=== PATIENT | female | born 1930 | race Caucasian/White ===

== ENCOUNTER 2016-10-24 18:05 | Emergency (ER) | payer OTHER ==
[~2016-10-24] VITALS: Ht 147.3 cm; Wt 54.4 kg
[2016-10-24] MEDS ORDERED: PLAV75TA38 PO (18:37)
[2016-10-24] MEDS ORDERED: TETANUS/DIPHTHERIA TOX ADSORB ADULT 0.5ML SYR/VIAL (90714) IM ONE (18:45)
[2016-10-24 19:05] LABS: MEAN CORPUSCULAR HEMOGLOBIN 32.1 pg (27.0-33.0); MEAN CORPUSCULAR HGB CONC 33.6 g/dl (32.0-36.5); MEAN CORPUSCULAR VOLUME 95.7 fl (80.0-96.0); RED CELL DISTRIBUTION WIDTH 15.6 % (11.5-14.5); WHITE BLOOD COUNT 3.8 K/mm3 (4.0-10.0)
[2016-10-24 19:12] LABS: INR 1.01
--- NOTE | 2016-10-24 19:30 | REPUSA ---
CT of the cervical spine Clinical history: Pain. Technique: Multiple axial CT images were obtained through the cervical spine without administration o f contrast. Coronal and sagittal 3-D reconstructed images were also obtained. Comparison: None. Findings: The cervical vertebral bodies are in satisfactory positioning and alignment. No fractures or dislocat ions are demonstrated. The odontoid process is intact. Intervertebral disc spaces are moderately narr owed at all levels. This is most severe at C5/C6. Moderate facet arthropathy is seen bilaterally. The re is no evidence of facet subluxation. The neural foramen appear grossly patent. The cervical crania l junction is intact. The cervical spinal canal demonstrates normal caliber and contour without evide nce of spinal stenosis. The surrounding soft tissues are within normal limits. Impression: No acute fracture or traumatic injury. Moderately severe multilevel degenerative disc dis ease throughout the cervical spine, most severe at C5/C6. Moderate bilateral facet arthropathy.
--- NOTE | 2016-10-24 19:30 | REPUSA ---
CT of the head Clinical history: trauma. Protocol: Multiple axial CT images obtained with 5 mm slice thickness were obtained through the head without administration of contrast. Findings: The ventricles and sulci are symmetric but prominent in size bilaterally. There are periven tricular areas of low attenuation throughout the deep white matter. There is no evidence of acute hem orrhage or infarct. There is no midline shift, mass effect, or extra-axial fluid collection. The osse ous structures are unremarkable. The visualized paranasal sinuses and mastoid air cells are clear. Th ere is superficial soft tissue swelling in the left frontal region. Impression: No acute hemorrhage or infarct. Findings are consistent with mild age-related atrophy and chronic small vessel ischemic disease. Superficial soft tissue contusion in the left frontal region.
--- NOTE | 2016-10-24 19:30 | REPUSA ---
CT of the facial bones without contrast Clinical history: Pain, injury. Technique: Multiple axial CT images were obtained through the facial bones and paranasal sinuses util izing 3 mm axial slices without administration of contrast. Coronal and sagittal reconstructions were also obtained. Findings: The visualized paranasal sinuses are clear. The osteomeatal complexes are patent bilaterall y. The nasal septum is midline. The visualized mastoid air cells are clear. The osseous structures do not demonstrate any acute abnormalities. The superficial soft tissues are within normal limits. Ther e is superficial soft tissue swelling in the left frontal region. Impression: No acute fracture. Superficial soft tissue swelling in the left frontal region.
[2016-10-24 19:34] LABS: ANION GAP 8 MEQ/L (8-16); BLOOD UREA NITROGEN 28 MG/DL (7-18); CALCIUM LEVEL 8.5 MG/DL (8.8-10.2); CARBON DIOXIDE LEVEL 26 MEQ/L (21-32); CHLORIDE LEVEL 113 MEQ/L (98-107); CREATININE FOR GFR 0.75 MG/DL (0.55-1.02); GLOMERULAR FILTRATION RATE > 60.0 (>32); GLUCOSE, FASTING 159 MG/DL (83-110); POTASSIUM SERUM 3.4 MEQ/L (3.5-5.1); SODIUM LEVEL 147 MEQ/L (136-145)
[2016-10-24] MEDS ORDERED: POTASSIUM CHLORIDE 10 MEQ SR TABLET PO ONE (20:45)
[2016-10-24] MEDS ORDERED: DERMABOND TOPICAL SKIN ADHESIVE TOP ONE ×2 (21:00)
[2016-10-24 21:23] VITALS: BP 185/87
== END 2016-10-24 21:42 | disposition home or self-care (01) ==
LOC: M ED 18:58
DX: S01.81XA Laceration without foreign body of other part of head, initial encounter (principal); S05.12XA Contusion of eyeball and orbital tissues, left eye, initial encounter; W01.0XXA Fall on same level from slipping, tripping and stumbling without subsequent striking against object, initial encounter; Y92.512 Supermarket, store or market as the place of occurrence of the external cause; Y93.89 Activity, other specified; Y99.8 Other external cause status; I10 Essential (primary) hypertension; E78.00 Pure hypercholesterolemia, unspecified; I25.2 Old myocardial infarction; Z95.5 Presence of coronary angioplasty implant and graft; Z79.02 Long term (current) use of antithrombotics/antiplatelets